=== PATIENT | male | born 1955 | race Caucasian/White ===

== ENCOUNTER → 2019-12-30 | Day surgery (SDC) | payer BC ==
[~2019-12-30] VITALS: Ht 177.8 cm; Wt 116.1 kg
[~2019-12-30] MED LIST: ASPIRIN CHEWABL81 MG PO; ATORVASTATIN CA40 M1 PO; METFORMIN ER500 MG PO; TOPROL XL25 MG PO
[2019-12-30 08:33] VITALS: BP 118/58
[2019-12-30 09:25] VITALS: BP 120/66
[2019-12-30 09:40] VITALS: BP 117/59
[2019-12-30 09:55] VITALS: BP 122/75
== END | disposition home or self-care (01) ==
LOC: SDC 12-24 09:30
DX: H25.811 Combined forms of age-related cataract, right eye (principal); I10 Essential (primary) hypertension; E11.9 Type 2 diabetes mellitus without complications; E66.9 Obesity, unspecified; Z68.36 Body mass index [BMI] 36.0-36.9, adult